=== PATIENT | male | born 1955 | race African-American/Black ===

== ENCOUNTER → 2018-12-25 | Outpatient (CLI) | payer OTHER ==
--- NOTE | 2018-12-25 10:59 | KCIC ---
MRI of the cervical spine without contrast 12/25/2018 CLINICAL HISTORY: Neck pain which radiates down the left shoulder and arm since August 2018. TECHNIQUE: Unenhanced T1-weighted, T2-weighted and recovery sagittal and gradient echo and T2-weighted axial images of the cervical spine were obtained. FINDINGS: Comparison is made to radiographs of the cervical spine dated 11/16/2018. Mild lateral curvature of the cervical spine is seen convex to the right. There is slight reversal of the normal cervical lordosis. Degenerative signal changes are seen involving all the disks of the cervical spine. Degenerative signal changes are seen within the marrow surrounding these discs. No area of abnormal signal intensity is seen involving the cervical spinal cord. At the C2-3 disc space there is a mild generalized disc bulge. Degenerative changes are seen involving the uncovertebral and facet joints bilaterally. These findings do not result in significant central spinal canal or neural foraminal stenosis. At the C3-4 disc space there is a mild generalized disc bulge. This is eccentric to the left. Degenerative changes are seen involving the uncovertebral and facet joints, left greater than right. These findings when combined do not result in significant central spinal canal stenosis. Mild to moderate left neural foraminal stenosis is seen. The right neural foramen is patent. At the C4-5 disc space there is a mild generalized disc bulge. Degenerative changes are seen involving the uncovertebral and facet joints, left greater than right. These findings when combined not result in significant central spinal canal stenosis. Moderate left neural foraminal stenosis is seen. The right neural foramen is patent. At the C5-6 disc space there is a mild to moderate generalized disc bulge. Degenerative changes are seen involving the uncovertebral and facet joints bilaterally. These findings when combined do not result in significant central spinal canal stenosis. Moderate bilateral neural foraminal stenosis is seen. At the C6-7 disc space there is a moderate generalized disc bulge. This is eccentric to the right. Degenerative changes are seen involving the uncovertebral and facet joints, right greater than left. These findings when combined result in moderate right neural foraminal stenosis. The left neural foramen is patent. At the C7-T1 disc spaces there is a mild generalized disc bulge. Degenerative changes are seen involving the facet joints bilaterally. These findings do not result in significant central spinal canal or neural foraminal stenosis. IMPRESSION: Degenerative changes are seen throughout the cervical spine. These findings do not result in significant central spinal canal stenosis at any level. Mild to moderate left neural foraminal stenosis is seen at C3-4. Moderate left neural foraminal stenosis is seen at C4-5. Moderate bilateral neural foraminal stenosis is seen at C5-6. Moderate right neural foraminal stenosis is seen at C6-7. Electronically signed by: Pedro Carson MD (12/25/2018 10:55 AM) [id number]
== END | disposition home or self-care (01) ==
LOC: KCIC MRI 08:33
PROVIDERS: ATTEND Family Medicine
DX: M47.22 Other spondylosis with radiculopathy, cervical region (principal); M48.02 Spinal stenosis, cervical region
CPT/HCPCS: 72141